=== PATIENT | female | born 1940 | race Caucasian/White ===

== ENCOUNTER 2017-11-16 19:10 | Emergency (ER) | payer MEDICARE ==
[~2017-11-16] VITALS: Ht 170.2 cm; Wt 71.0 kg
[~2017-11-16 19:10] MED LIST: ALEN70TA3 PO; ASPI-621 PO; ASPI-650 PO; ESTR1.25 PO; ETOMIDATE 40 MG/20 ML ONE; HYDR12.53 PO; PROPOFOL 10 MG/ML, 100ML IV ONE; SUCCINYLCHOLINE 20 MG/ML, 10ML ONE
[2017-11-16] MEDS ORDERED: LABETALOL 5MG/ML, 20ML ONE (19:19)
[2017-11-16] MEDS ORDERED: PROPOFOL 100 ML IV PRN (19:23)
[2017-11-16] MEDS ORDERED: ETOMIDATE 20 MG/10 ML IV ONE (19:30)
[2017-11-16] MEDS ORDERED: SUCCINYLCHOLINE 20 MG/ML, 10ML IVPush ONE (19:30)
[2017-11-16] MEDS ORDERED: LABETALOL 5MG/ML, 20ML IVPush PRN (19:30)
[2017-11-16 19:40] LABS: MEAN CORPUSCULAR HEMOGLOBIN 32.2 pg (27.0-34.8); MEAN CORPUSCULAR HGB CONC 33.9 g/dL (32.4-35.8); MEAN PLATELET VOLUME 7.7 fL (7.4-10.4); PLATELET COUNT 290 x10^3/uL (130-400); RED BLOOD COUNT 4.04 x10^6/uL (3.82-5.3); RED CELL DISTRIBUTION WIDTH 13.8 % (9.6-15.2)
[2017-11-16 19:45] LABS: INTERNATIONAL NORMALIZED RATIO 0.97 (0.93-1.1)
[2017-11-16 19:50] LABS: ALBUMIN 3.6 g/dL (3.4-5.0); ANION GAP 13 mmol/L (5-15); CALCIUM 8.4 mg/dL (8.5-10.1); CHLORIDE 105 mmol/L (98-107)
[2017-11-16 19:55] LABS: ALANINE AMINOTRANSFERASE 24 U/L (12-78); ALKALINE PHOSPHATASE 62 U/L (45-117); BILIRUBIN,TOTAL 0.3 mg/dL (0.2-1.0); CREATININE 0.89 mg/dL (0.55-1.02); TOTAL PROTEIN 6.8 g/dL (6.4-8.2)
[2017-11-16] MEDS ORDERED: LEVETIRACETAM 1,000 MG in SODIUM CHLORIDE 0.9% 100 ML IV ONE (20:00)
[2017-11-16] MEDS ORDERED: PLEASE ENTER HEIGHT AND WEIGHT MC SCH (20:00)
[2017-11-16 20:05] LABS: MD YES
[2017-11-16 20:07] LABS: EOS#(MANUAL) 0.33 x10^3/uL (0.0-0.4); EOS% (MANUAL) 3 % (1-7); MONOS#(MANUAL) 1.31 x10^3/uL (0.3-2.7); MONOS% (MANUAL) 12 % (2-9)
[2017-11-16 20:10] LABS: SEG#(MANUAL) 2.83 x10^3/uL (1.8-6.8); SEGS% (MANUAL) 26 % (42-75)
[2017-11-16 20:11] LABS: <PLATELET ESTIMATE> ADEQUATE; <PLT MORPHOLOGY> NORMAL PLT MORPH; <RBC MORPHOLOGY> NORMAL; LYMPH#(MANUAL) 5.56 x10^3/uL (1-3.4); LYMPHS% (MANUAL) 51 % (22-44); REACTIVE LYMPHS # (MANUAL) 0.87 x10^3/uL (0-0); REACTIVE LYMPHS % (MANUAL) 8 % (0-0)
[2017-11-16 20:20] VITALS: BP 132/74
== END 2017-11-16 20:52 | disposition short-term general hospital (02) ==
LOC: ED 19:34
DX: I60.9 Nontraumatic subarachnoid hemorrhage, unspecified (principal)
CPT/HCPCS: 31500; 36415; 36600; 70450; 71045; 80047; 80053; 80307; 82803; 85025; 85610; 85730; 86850; 86900; 94002; 96374; 99291; J0330; J1953; J2704